=== PATIENT | male | born 1955 | race Caucasian/White ===

== ENCOUNTER 2017-02-28 05:23 | Inpatient (IN) | payer BC, OTHER ==
[~2017-02-28] VITALS: Ht 185.4 cm; Wt 91.6 kg
[2017-02-28] VITALS (7 sets, daily range): BP systolic 118–155; BP diastolic 66–79
--- NOTE | ~2017-02-28 | O ---
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 PROCEDURE: Decompressive laminectomy at L3, L4, and L5 levels, bilateral. SURGEON: Benjamín Salazar MD INDICATIONS: This 61-year-old gentleman complains of severe radiating bilateral leg pain, over the past 2 months. He has had similar, less severe symptoms in the past, which were managed conservatively. Now, he has unremitting pain which has not resolved with several attempted epidural injections and percutaneous puncture of degenerative facet cyst at L3-L4, which seemed to contribute significantly to the stenosis. We have discussed treatment options and risks and benefits. He understands well and prefers to go ahead with surgical decompression. We have also discussed that he has multilevel degenerative change and may have some ongoing back discomfort. We have discussed the option of surgical fusion, but both agree, and would like to limit today to decompression alone. We have also discussed he has other significant comorbidity problems with a history of alcohol abuse and esophageal varices, which resulted in several episodes of GI bleeding in the past. He has, as a result, been chronically anemic with hemoglobin in the mid 7s. He has not had significant symptoms with this over the past 8-10 months since his most recent hospitalization in July of 2016. His hemoglobin preoperatively was 7.5. We have discussed delaying his surgery to correct this problem, but after some discussion, he wishes to proceed ahead today as planned, we have elected to go ahead with transfusion of 2 units of blood during the procedure. I anticipate that the blood loss as a result of the procedure itself would probably be of mild, and I feel he is a safe candidate for surgery at this time. DESCRIPTION OF PROCEDURE: The patient was taken to the operating room, where he was placed under general anesthesia. Prophylactic intravenous antibiotics were administered. He was turned to the prone position. The lower back was meticulously prepped and draped. C-arm was used to localize the appropriate [address] [address] OPERATIVE REPORT Name: PERLITAPOPEYE M Room #: 431-P [facility] IN .R.#: [id number] Admission: 02/28/17 Attend Phys: Benjamín Salazar MD Discharge: Date of : 51 Report #: [id number] level. A skin incision was made from the upper aspect of L3, down to the lower aspect of L5. This was carried through subcutaneous tissues and fascia, extending the dissection, both toward the right and left side. The spinous process and lamina of L3, L4, and L5 were visualized. The spinous processes of these vertebrae were removed. The canal was entered in the mid portion. By careful dissection and then careful decompressive laminectomy was performed at each level, proceeding proximally and distally, until I was clearly below the L4-L5 level and clearly above the L3 level. C-arm views were obtained to confirm the localization and repeated once again at the conclusion of the dissection with a marker at the mid portion of L5 and the L2-L3 disk level, which confirmed that was clearly above and below the area of significant stenosis. The dissection was extended out laterally with some difficulty, as there was a good deal of scarring and bony hypertrophy. There did appear to be some hypertrophic soft tissues consistent with facet cysts bilaterally. Once the decompression had been completed, the canal seemed to be opened nicely, and the dura appeared to be freed up. The nerve roots could be palpated and traced out laterally with only mild ongoing compression. There appeared to be no significant ongoing stenosis, and the decompression seemed to be adequate. The bleeding throughout the procedure was mild to moderate with some continued oozing. Total blood loss was estimated about 200 mL. At the conclusion of the case, the wound was gently compressed with Gelfoam, thrombin, and sponges. Good hemostasis was established. The muscle layer and deeper fascia was then closed with multiple #1 Vicryl sutures and Hemovac. Wound was placed above this layer with the tip extending down into the lower sub fascial space. The more superficial tissues were closed with 0 Monocryl. The skin was closed with skin bashir. A sterile dressing was applied. The patient was awakened and returned to the recovery room in good condition. <ELECTRONICALLY SIGNED> By: Benjamín Salazar MD 03/01/17 [phone] Benjamín Salazar MD /nt
--- NOTE | ~2017-02-28 | D ---
[facility] [place] [address] [address] [place] [address] DISCHARGE SUMMARY Name: POPEYE BHAT Room #: 431-P [facility] IN ..#: [id number] Admission: 02/28/17 Attend Phys: Benjamín Salazar MD Discharge: 03/01/17 Date of : 51 Report #: [id number] THIS REPORT FOR: //name// CC: Benjamín Ac DATE OF SERVICE: 03/01/2017 FINAL DIAGNOSES: 1. Multilevel degenerative lumbar spondylosis with spinal stenosis. 2. Anemia of chronic disease and history of gastrointestinal bleeding. OPERATIONS AND PROCEDURES: Multilevel decompressive lumbar laminectomy for correction of spinal stenosis. HISTORY OF PRESENT ILLNESS: This 61-year-old gentleman has severe progressive bilateral leg pain, numbness and weakness with clinical radiographic findings consistent with multilevel spondylosis and spinal stenosis. He has tried conservative measures including time, activity moderation, epidural injection and percutaneous puncture of degenerative cyst which contribute to the stenosis. These have been ineffective. We have elected to go ahead with surgical decompression. He also has a history of alcohol abuse and esophageal varices with previous bleeding and chronic anemia. His current hemoglobin is 7.5. We discussed this issue but elected to go ahead with surgery and elected to give him a couple units of blood during the procedure for stabilization. HOSPITAL COURSE: The patient received 2 units of blood to correct his hemoglobin. He was taken to the operating room where he was placed under general anesthesia. A decompressive laminectomy including L3, L4 and L5 levels was performed. He tolerated this well. He was monitored overnight, but actually had minimal discomfort and was able to quickly resume ambulation and regular diet. A Hemovac drain, which was placed at the time of surgery had a little drainage and removed the following morning. He seems to be safe and fully independent with ambulation at this point, he seems ready for discharge home. DISCHARGE MEDICATIONS: Include hydrocodone 5/325 one q. 3 hours p.r.n. for pain. He will also resume his preoperative ferrous sulfate 325 mg t.i.d. He will follow up with his primary care physician with regard to rechecking his hemoglobin and monitoring his other general medical problems. I have asked him [address] [address] DISCHARGE SUMMARY Name: POPEYE BHAT Room #: 431-P [facility] IN M.R.#: [id number] Admission: 02/28/17 Attend Phys: Benjamín Salazar MD Discharge: 03/01/17 Date of : 51 Report #: [id number] to continue a very gentle exercise program and I will plan to see him back in my office in 2 weeks for followup and suture removal. By: 0813 [id number] Benjamín Salazar MD /nt
--- NOTE | ~2017-02-28 | H ---
[facility] [place] [address] HISTORY AND PHYSICAL Name: POPEYE BHAT Room #: 431-P [facility] IN M.R.#: [id number] Admission: 02/28/17 Attend Phys: Benjamín Salazar MD Discharge: 03/01/17 Date of : 51 Report #: [id number] THIS REPORT FOR: //name// For History and Physical, please see office documentation/handwritten note in the patient's medical record. By: 1451 Benjamín Salazar MD /
[~2017-02-28 05:23] MED LIST: HYDROCODONE-APA1 TA1 PO
[2017-03-01 04:30] VITALS: BP 136/73
[2017-03-01 07:58] VITALS: BP 131/68
[2017-03-01 09:48] VITALS: BP 131/68
[2017-03-01 10:03] VITALS: BP 131/68
== END 2017-03-01 10:36 | disposition home or self-care (01) | DRG 517 ==
LOC: OR 05:23 → TBA 05:23 → OR 08:47 → 4E 11:22 → OR 14:04 → 4E 03-01 10:36
PROC: 01NB0ZZ Release Lumbar Nerve, Open Approach (ICD-10-PCS; principal; 2017-02-28)
PROC: 30233N1 Transfusion of Nonautologous Red Blood Cells into Peripheral Vein, Percutaneous Approach (ICD-10-PCS; 2017-02-28)
DX: M48.06 Spinal stenosis, lumbar region (principal); K21.9 Gastro-esophageal reflux disease without esophagitis; D69.6 Thrombocytopenia, unspecified; G62.9 Polyneuropathy, unspecified; D63.8 Anemia in other chronic diseases classified elsewhere; M47.26 Other spondylosis with radiculopathy, lumbar region; M43.16 Spondylolisthesis, lumbar region; M51.26 Other intervertebral disc displacement, lumbar region; M51.36 Other intervertebral disc degeneration, lumbar region; Z87.891 Personal history of nicotine dependence; Z98.52 Vasectomy status
CPT/HCPCS: 10783; 50010; 50011; 50101; 50402; 50704; 50850; 56525; 62110; 62900; 70005